=== PATIENT | male | born 1990 ===

== ENCOUNTER 2020-09-22 20:52 | Emergency (ER) | payer OTHER ==
[2020-09-22 21:03] VITALS: BP 141/86; PULSE 71; TEMP 97.9; BMI 26.2
[2020-09-22] MEDS ORDERED: ACETAMINOPHEN 500 MG TABLET (FP) PO ONE (21:29)
[2020-09-22] MEDS ORDERED: ACETAMINOPHEN 325 MG TABLET (FP) ONE (21:33)
[2020-09-22] MEDS ORDERED: IBUPROFEN 600 MG TABLET (FP) PO ONE ×2 (22:15→22:20)
== END 2020-09-22 22:45 | disposition home or self-care (01) ==
LOC: JER 20:52
DX: M25.512 Pain in left shoulder (principal)
CPT/HCPCS: 99283-25